=== PATIENT | female | born 1955 | race Caucasian/White ===

== ENCOUNTER 2021-01-01 14:32 | Emergency (ER) | payer MEDICARE, OTHER ==
[2021-01-01] MEDS ORDERED: HYDROCODON-ACE1 EAC4 PO (16:20)
== END 2021-01-01 17:25 | disposition home or self-care (01) ==
LOC: ER1 14:32
DX: S82.002A Unspecified fracture of left patella, initial encounter for closed fracture (principal); W01.0XXA Fall on same level from slipping, tripping and stumbling without subsequent striking against object, initial encounter
CPT/HCPCS: 29530; 73564; 73590; 99283

== ENCOUNTER 2021-05-05 13:16 | Emergency (ER) | payer MEDICARE, OTHER ==
[~2021-05-05 13:16] MED LIST: ASPIRIN325 MG PO; BUPROPION HCL150 M1 PO; BUSPIRONE HCL15 MG PO; CREON DR 24,001 EACH PO; DICLOFENAC GEL 1% TOP; FLUTICASONE SPRAY; HYDROCODON-ACE1 EAC4 PO; HYDROCODON-ACE1 EAC6 PO; LEVOTHYROXINE50 MC1 PO; LEXAPRO20 MG PO; LINZESS290 MCG PO; LOVENOX30 MG/0.3 SQ; METHOCARBAMOL500 MG PO; NEURONTIN800 MG PO; NURTEC ODT75 MG PO; OMEPRAZOLE40 MG PO; ONDANSETRON HCL8 MG PO; PERCOCET 7.5-31 EACH PO; POTASSIUM CHLO10 MEQ PO; PROVENTIL HFA6.7 GM INH; SINGULAIR10 MG PO; SODIUM BICARBO650 MG PO; VITAMIN D350 MC3 PO; XIIDRA EYE EYEBOTH; XYZAL5 MG PO
== END 2021-05-05 13:39 | disposition left against medical advice (07) ==
LOC: ER1 13:16
DX: Z53.21 Procedure and treatment not carried out due to patient leaving prior to being seen by health care provider (principal)